=== PATIENT | female | born 1980 | race Caucasian/White ===

== ENCOUNTER → 2017-09-17 16:24 | Outpatient (CLI) | payer OTHER, SELFPAY ==
--- NOTE | 2017-09-17 | DI.MRI.S_ITS ---
PROCEDURE: MR FOOT LT WO/W CON INDICATIONS: PLANTAR FACIAL FIBROMETOSIS, LEFT HEEL PAIN TECHNIQUE: Noncontrast sagittal T1 spin echo and T2 fast spin echo with fat saturation, long-axis T1 spin echo and T2 fast spin echo with fat saturation; short-axis T1 spin echo, proton density fast spin echo, and T2 fast spin echo with fat saturation through the forefoot. Post-contrast short axis, long axis, and sagittal T1 spin echo with fat saturation through the forefoot. COMPARISON: None. FINDINGS: Image quality: Excellent. Bones and joints: There is mild ill-defined T2 signal elevation and enhancement within the inferomedial aspect of the posterior process of the calcaneus adjacent to the plantar fascia insertion site. The sesamoid bones appear in expected positions, without internal edema. No metatarsophalangeal joint degeneration. No intraosseous lesions. Small tibiotalar joint effusion. Small talonavicular joint effusion. Soft tissues: There is moderate T2 signal elevation surrounding the medial bundle of the plantar fascia at the calcaneal insertion site. Mild T2 signal elevation within the medial bundle of the plantar fascia at the calcaneal insertion site is present. The visualized plantar foot muscles demonstrate normal signal and bulk. Visualized flexor and extensor tendons appear intact, without tenosynovitis. The distal insertions of the peroneus brevis and longus tendons appear intact. The principal Lisfranc ligament appears intact. No soft tissue ganglion cysts or bursal fluid collections. IMPRESSION: 1. Medial bundle plantar fasciitis. 2. No evidence of plantar fibromatosis. 3. Small tibiotalar and talonavicular joint effusions. Dictated by: Sasha Francois M.D. on 09/20/2017 at 14:02 Approved by: Sasha Francois M.D. on 09/20/2017 at 14:08
== END ==
PROVIDERS: Family Provider Internal Medicine; PCP Internal Medicine; Visit Provider Podiatrist
DX: M72.2 Plantar fascial fibromatosis (principal); M79.672 Pain in left foot; M25.475 Effusion, left foot
CPT/HCPCS: 73720; A9579

== ENCOUNTER → 2017-11-17 11:05 | Outpatient (CLI) | payer OTHER, SELFPAY ==
[2017-11-17 11:54] LABS: Influenza A and B by PCR Rapid Negative (Negative)
== END ==
PROVIDERS: Family Provider Internal Medicine; PCP Internal Medicine; Visit Provider Internal Medicine
DX: R50.9 Fever, unspecified (principal); J02.9 Acute pharyngitis, unspecified
CPT/HCPCS: 87070; 87400

== ENCOUNTER 2018-02-07 04:16 | Observation (INO) | payer OTHER, SELFPAY ==
[2018-02-07] VITALS (18 sets, daily range): BP systolic 91–128; BP diastolic 55–77; PULSE 54–94; RESP 11–20; TEMP 36.2–37.2; O2SAT 95–100; BMI 22.4
--- NOTE | 2018-02-07 | PATH_ITS ---
[facility] Accession Number: [id number] . 01 Material submitted: . APPENDIX . 02 Diagnosis: Appendix: Acute appendicitis. MRV/02/09/2018 . 02 Electronically signed: . Nahum Christiansen MD, Pathologist NPI- [id number] . 01 Gross description: . Received in formalin, labeled appendix, is an intact appendix (length-5.2 cm, diameter-0.9 cm) with stanley-pink smooth and shiny serosa and attached mesocolon (up to 1.7 cm in depth). The resection margin is received opened. The lumen contains stanley-kapadia solid soft material. The wall is up to 0.1 cm thick. No nodules, masses or lesions are identified. The resection margin is inked black. Section code: (A1) resection margin en face and four additional serial sections; (A2) one-half of the bivalved tip. ([id number]) /[facility] . 02 Pathologist provided ICD-10: K35.80 . 02 CPT . 456000 Performed at: 01 [facility] [address] [facility], [place], [place] [id number] MD Santi Loera MD Phone: [phone] Performed at: [address] [facility] [id number] [place], [place] [id number] MD Laurel Menon MD Phone: [phone]
--- NOTE | 2018-02-07 04:57 | ED.ABDPAIN ---
HPI - Abdominal Pain General Chief Complaint: Abdominal Pain Stated Complaint: STOMACH PAIN, CANT SLEEP Time Seen by Provider: 02/07/18 04:34 Source: patient Mode of arrival: ambulatory Limitations: no limitations History of Present Illness HPI narrative: Patient complains of a burning mid abdominal pain that goes like a band across her abdomen that awoke her from sleep this morning. She states this started about 5 hr ago. Patient states she felt fine when she went to bed but she awoke because the pain. Patient states this has happened 2 other times, once about 3 years ago and the other time about 8-9 years ago. She states the quality of the pain was the same at this times. After the 1st incident, she had an EGD, which is negative. Patient then was for the 2nd episode and so an ultrasound of her gallbladder was done which was also negative. Patient's the only 2 other episodes she has ever had of this, and this is 3rd. She states in the past, Protonix and symptomatic management has worked in the emergency department. She never has followed up with gastroenterology, though it appears she has not been referred. MD complaint: abdominal pain Location: periumbilical and epigastric Severity scale (1-10): 7 Related Data Home Medications Medication Instructions Recorded Confirmed Calcium 500 See Label Instructions .ROUTE 02/07/18 02/07/18 .COMPLEX See Label Instructions .ROUTE 02/07/18 02/07/18 .COMPLEX Probiotic See Label Instructions .ROUTE 02/07/18 02/07/18 .COMPLEX omeprazole magnesium [Prilosec OTC] 20 mg PO DAILY 02/07/18 02/07/18 Previous Rx's Medication Instructions Recorded alprazolam 0.5 mg tablet See Label Instructions PO .COMPLEX 01/04/18 PRN #10 tab norgestimate 0.18 mg/0.215 mg/0.25 1 tab PO DAILY #336 tab 01/04/18 mg-ethinyl estradiol 25 mcg tablet acetaminophen 500 mg PO Q6H PRN #60 cap 02/09/18 docusate sodium [Colace] 100 mg PO BID #14 cap 02/09/18 gabapentin 100 mg PO TID #30 cap 02/09/18 oxycodone 5 mg PO Q3H PRN #30 tab 02/09/18 sennosides [Senokot] 8.6 mg PO BEDTIME #10 tab 02/09/18 Allergies Allergy/AdvReac Type Severity Reaction Status Date / Time morphine [MORPHINE] Allergy Intermediate hives Verified 02/07/18 04:36 cephalexin [From KEFLEX] Allergy Mild hives Verified 02/07/18 04:36 Review of Systems Review of Systems All systems reviewed & are unremarkable except as noted in HPI and below Constitutional Denies chills, Denies fever(s), Denies lethargy and Denies weakness Eyes Denies change in vision, Denies eye discharge, Denies irritation and Denies loss of vision ENT Ears, Nose, Mouth, and Throat: Denies change in voice, Denies neck pain and Denies sore throat Cardiovascular Denies chest pain, Denies irregular heart rhythm, Denies lightheadedness, Denies palpitations, Denies dyspnea, Denies dyspnea on exertion and Denies orthopnea Respiratory Denies cough, Denies dyspnea, Denies dyspnea on exertion and Denies wheezing Gastrointestinal Gastrointestinal: Reports abdominal pain, Denies change in bowel habits, Denies diarrhea, Reports nausea and Denies vomiting Genitourinary Denies hematuria, Denies flank pain, Denies urinary incontinence and Denies urinary urgency Musculoskeletal Denies neck pain Integumentary/Breasts Denies pruritus, Denies erythema, Denies rash and Denies wounds Neurologic Denies confusion, Denies loss of vision and Denies weakness Psychiatric Denies anxiety, Denies confusion, Denies depression, Denies homicidal ideation and Denies suicidal ideation Endocrine Denies palpitations Hematologic/Lymphatic Denies easy bruising Allergic/Immunologic Denies wheezing PFSH Medical History Healthy adult (Acute) Surgical History No pertinent past surgical history (Acute) Family History Father Age: 74 Afib High cholesterol Grandmother Hypertension Mother Age: 70 Osteoporosis Grandfather Heart disease Grandmother Heart disease Hypertension High cholesterol Social History household members: spouse and children Smoking Status: Never smoker alcohol intake: current Exam Initial Vital Signs Initial Vital Signs: Vital Signs Temperature 98.6 F 02/07/18 04:32 Pulse Rate 77 02/07/18 04:32 Respiratory Rate 18 02/07/18 04:32 Blood Pressure 128/64 02/07/18 04:32 Pulse Oximetry 100 02/07/18 04:32 Const General: cooperative and well developed Nutritional Appearance: well nourished Orientation: alert, awake, oriented x3 and not confused [facility] Head: normocephalic and atraumatic Ears: external ears normal Nose: external nose normal and No nasal discharge Face and sinus: face symmetric and No dry mucous membranes Mouth: oral mucosae normal and moist mucous membranes Teeth and gingiva: dentition normal Eyes General: appearance normal, both eyes and all related structures Eyelids: eyelids normal Conjunctivae: conjunctivae normal Sclera: sclerae normal Pupils: PERRL EOM: EOM intact bilaterally Neck Neck: normal visual inspection, trachea midline, No lymphadenopathy, No midline deformity and No JVD Lymphatic: No lymphedema Chest Chest: normal inspection of the chest Resp Effort & Inspection: normal respiratory effort, able to speak in complete sentences, no respiratory distress and no use of accessory muscles Auscultation: clear to auscultation bilaterally, no rales, no rhonchi and no wheezes Cardio Rate: regular rate Rhythm: regular rhythm Heart Sounds: no click, no gallops, no murmurs and no rubs Pulses: normal peripheral pulses GI Inspection: non-distended Palpation: soft, no hepatosplenomegaly, No guarding, No pulsatile mass and tender (moderate, generalized.) Back/Spine/Pelvis Back: No CVA tenderness Cervical Spine: cervical ROM normal and No pain with cervical ROM Thoracic/Lumbar Spine: thoracic and lumbar spine normal to inspection Skin General: no rashes or lesions noted, No jaundice and No petechiae Neuro General: alert, oriented x3, gait normal and no focal motor deficits Speech: speech normal Extrem General: full ROM, no clubbing, cyanosis or edema, no pedal edema and no calf tenderness Psych Appearance: well kempt Mental Status: mental status grossly normal Attitude: cooperative Thought Content: normal and suicidality Judgment: judgment good Course Course Narrative: Patient declined symptomatic treatment in the emergency department, but was worked up for her symptoms. Lab studies were done, as well as CT scan of the abdomen and pelvis. Patient was found to have leukocytosis of 15 0.1, and CT scan results were consistent with an early appendicitis, per radiologist. I spoke with Dr. Mckineny of surgery, who did agree to admit the patient to his service. Results were discussed with the patient, who expressed understanding. Orders Ordered: Discontinued Medications Acetaminophen (Tylenol) 650 mg PO Q6HR PRN PRN Reason: As Needed for Fever/Mild Pain Last Admin: 02/08/18 14:34 Dose: 325 mg Admin: 02/08/18 08:34 Dose: 325 mg Al Hydrox/Mg Hydrox/Simethicone 20 ml/ Lidocaine HCl 15 ml 0 ml PO NOW ONE Stop: 02/07/18 05:46 Last Admin: 02/07/18 06:02 Dose: 15 ml Fentanyl (Sublimaze) 25 mcg IV Q5MIN PRN PRN Reason: Pain, Mild (1-3) Last Admin: 02/07/18 13:46 Dose: 25 mcg Admin: 02/07/18 13:39 Dose: 25 mcg Admin: 02/07/18 13:33 Dose: 25 mcg Admin: 02/07/18 13:27 Dose: 25 mcg Fentanyl (Sublimaze) 50 mcg IV Q5MIN PRN PRN Reason: Pain, Moderate (4-6) Fentanyl (Sublimaze) 100 mcg IV Q5MIN PRN PRN Reason: Pain, Severe (7-10) Fentanyl (Sublimaze) 50 mcg IV Q5MIN PRN PRN Reason: Pain, Moderate (4-6) Gabapentin (Neurontin) 100 mg PO TID CHAZ Last Admin: 02/09/18 10:57 Dose: Not Given Admin: 02/08/18 21:14 Dose: 100 mg Hydromorphone HCl (Dilaudid) 0.5 mg IV NOW ONE Stop: 02/07/18 05:46 Last Admin: 02/07/18 05:58 Dose: 0.5 mg Hydromorphone HCl (Dilaudid) 1 mg IV NOW ONE Stop: 02/07/18 14:46 Last Admin: 02/07/18 14:42 Dose: 1 mg Sodium Chloride (Normal Saline 0.9%) 1,000 mls @ 1,000 mls/hr IV BOLUS ONE Stop: 02/07/18 06:44 Last Infusion: 02/07/18 07:33 Dose: 0 mls/hr Admin: 02/07/18 05:58 Dose: 1,000 mls/hr Piperacillin/Tazobactam/Dextrose (Zosyn) 3.375 gm in 50 mls @ 100 mls/hr IV NOW ONE Stop: 02/07/18 08:46 Last Infusion: 02/07/18 12:37 Dose: 0 mls/hr Admin: 02/07/18 12:32 Dose: 100 mls/hr Infusion: 02/07/18 09:38 Dose: 100 mls/hr Infusion: 02/07/18 09:15 Dose: 100 mls/hr Admin: 02/07/18 08:49 Dose: 100 mls/hr Sodium Chloride (Normal Saline 0.9%) 1,000 mls @ 100 mls/hr IV CONT CHAZ Last Admin: 02/07/18 10:29 Dose: 100 mls/hr Sodium Chloride (Normal Saline 0.9%) 1,000 mls @ 100 mls/hr IV CONT CHAZ Last Admin: 02/07/18 11:34 Dose: Lactated Ringer's (Lactated Ringers) 1,000 mls @ 42 mls/hr IV NOW ONE Stop: 02/08/18 12:06 Last Infusion: 02/08/18 09:48 Dose: 0 mls/hr Admin: 02/07/18 12:19 Dose: 42 mls/hr Dextrose/Sodium Chloride (Dextrose 5%-0.45% Ns) 1,000 mls @ 100 mls/hr IV CONT CHAZ Last Infusion: 02/08/18 21:09 Dose: 0 mls/hr Admin: 02/08/18 18:54 Dose: 100 mls/hr Infusion: 02/08/18 18:35 Dose: 100 mls/hr Admin: 02/08/18 08:35 Dose: 100 mls/hr Infusion: 02/08/18 00:41 Dose: 100 mls/hr Admin: 02/07/18 14:41 Dose: 100 mls/hr Ibuprofen (Advil) 600 mg PO Q6HR PRN PRN Reason: As Needed for Fever/Mild Pain Last Admin: 02/09/18 05:45 Dose: 600 mg Admin: 02/08/18 22:54 Dose: 600 mg Admin: 02/08/18 16:32 Dose: 600 mg Admin: 02/08/18 08:34 Dose: 600 mg Ketorolac Tromethamine (Toradol) 30 mg IV Q6HR CHAZ Stop: 02/12/18 11:01 Last Admin: 02/07/18 11:34 Dose: 30 mg Lorazepam (Ativan) 0.25 mg IV NOW PRN PRN Reason: Anxiety Meperidine HCl (Demerol) 25 mg IV Q5MIN PRN PRN Reason: Pain or shivering Ondansetron HCl (Zofran) 4 mg IV NOW ONE Stop: 02/07/18 05:46 Last Admin: 02/07/18 06:00 Dose: 4 mg Ondansetron HCl (Zofran) 4 mg IV NOW PRN PRN Reason: Nausea And Vomiting Oxycodone/Acetaminophen (Percocet 5/325) 1 tab PO Q4HR PRN PRN Reason: Pain, Moderate (4-6) Last Admin: 02/09/18 10:55 Dose: 1 tab Admin: 02/09/18 05:44 Dose: 1 tab Admin: 02/08/18 22:54 Dose: 1 tab Admin: 02/08/18 18:57 Dose: 1 tab Admin: 02/08/18 14:34 Dose: 1 tab Admin: 02/08/18 10:25 Dose: 1 tab Admin: 02/08/18 06:19 Dose: 1 tab Admin: 02/08/18 01:42 Dose: 1 tab Admin: 02/07/18 21:17 Dose: 1 tab Admin: 02/07/18 17:01 Dose: 1 tab Pantoprazole Sodium (Protonix) 40 mg IV NOW ONE Stop: 02/07/18 05:46 Last Admin: 02/07/18 06:02 Dose: 40 mg Ranitidine HCl (Zantac) 150 mg PO BID CHAZ Last Admin: 02/09/18 10:55 Dose: 150 mg Admin: 02/08/18 21:15 Dose: 150 mg Admin: 02/08/18 09:52 Dose: 150 mg Admin: 02/08/18 08:33 Dose: Admin: 02/07/18 20:22 Dose: 150 mg Vital Signs - 8 hr 02/07/18 04:32 Temperature 98.6 F Pulse Rate 77 Respiratory Rate 18 Blood Pressure 128/64 Pulse Oximetry 100 MDM - Abdominal Pain Medical Records Attestation: I reviewed the patient's medical records. Lab Data Attestation: I reviewed the patient's lab results. Result diagrams: 02/07/18 04:55 02/07/18 04:55 Lab Results 02/07/18 02/07/18 02/07/18 Range/Units 04:55 04:55 04:55 WBC 15.1 H (4.5-11.0) X10^3/uL RBC 4.88 (4.0-5.2) X10^6/uL Hgb 14.8 (12.0-16.0) g/dL Hct 44.3 (36-46) % MCV 90.8 (80-100) fL MCH 30.4 (26-34) PG MCHC 33.5 (30-36) % RDW 12.7 (11.6-14.8) % Plt Count 170 (150-400) X10^3/uL Neut % (Auto) 82.2 H (50-75) % Lymph % (Auto) 11.4 L (25-40) % [place] % (Auto) 5.1 (3-14) % Eos % (Auto) 1.1 L (2-4) % Baso % (Auto) 0.2 (0-2) % Neut # (Auto) 78909 H (6584-4708) /uL PT 10.6 (10.1-12.7) SECONDS INR 0.9 (0.9-1.3) APTT 26 L (26.4-36.2) SECONDS Sodium 139 (137-145) mmol/L Potassium 4.3 (3.4-5.1) mmol/L Chloride 102 (98-107) mmol/L Carbon Dioxide 27 (22-32) mmol/L BUN 13 (7-17) mg/dL Creatinine 0.70 (0.52-1.04) mg/dL Estimated GFR > 60.0 (>60) mL/min BUN/Creatinine Ratio 18.6 (6-22) Glucose 107 H (70-100) mg/dL Calcium 9.3 (8.4-10.2) mg/dL Total Bilirubin 0.4 (0.2-1.3) mg/dL AST 31 (14-36) IU/L ALT 41 (9-52) IU/L Alkaline Phosphatase 48 (38-126) U/L Total Protein 7.2 (6.3-8.2) g/dL Albumin 4.4 (3.5-5.0) g/dL Globulin 2.8 (1.7-4.1) g/dL Albumin/Globulin Ratio 1.6 (1.0-2.8) Lipase 83 (23-300) U/L 02/07/18 Range/Units 04:55 WBC (4.5-11.0) X10^3/uL RBC (4.0-5.2) X10^6/uL Hgb (12.0-16.0) g/dL Hct (36-46) % MCV (80-100) fL MCH (26-34) PG MCHC (30-36) % RDW (11.6-14.8) % Plt Count (150-400) X10^3/uL Neut % (Auto) (50-75) % Lymph % (Auto) (25-40) % [place] % (Auto) (3-14) % Eos % (Auto) (2-4) % Baso % (Auto) (0-2) % Neut # (Auto) (7257-5357) /uL PT (10.1-12.7) SECONDS INR (0.9-1.3) APTT (26.4-36.2) SECONDS Sodium (137-145) mmol/L Potassium (3.4-5.1) mmol/L Chloride (98-107) mmol/L Carbon Dioxide (22-32) mmol/L BUN (7-17) mg/dL Creatinine (0.52-1.04) mg/dL Estimated GFR (>60) mL/min BUN/Creatinine Ratio (6-22) Glucose (70-100) mg/dL Calcium (8.4-10.2) mg/dL Total Bilirubin (0.2-1.3) mg/dL AST (14-36) IU/L ALT (9-52) IU/L Alkaline Phosphatase (38-126) U/L Total Protein (6.3-8.2) g/dL Albumin (3.5-5.0) g/dL Globulin (1.7-4.1) g/dL Albumin/Globulin Ratio (1.0-2.8) Lipase 94 (23-300) U/L Point of care testing: Point of Care Testing Test Results Negative Urine Dip Bedside Urine Glucose Negative Bedside Urine Bilirubin - Negative Bedside Urine Ketone - Negative Urine Specific [place] 1.020 Bedside Urine Occult Blood - Negative Bedside Urine pH 6.0 Bedside Urine Protein - Negative Bedside Urine Urobilinogen - Negative Bedside Urine Nitrite - Negative Bedside Urine Leukocytes - Negative Esterase Imaging Data CT scan - abdomen: Radiologist's impression: PROCEDURE: CT ABDOMEN PELVIS W CON INDICATIONS: abdominal pain TECHNIQUE: After the administration of intravenous contrast, 5 mm thick sections acquired from the diaphragm to the symphysis. 5 mm coronal and sagittal reformats were acquired. For radiation dose reduction, the following was used: automated exposure control, adjustment of mA and/or kV according to patient size. COMPARISON: None. FINDINGS: Image quality: Excellent. ABDOMEN: Lung bases: Lung bases are clear. Heart size is normal. Solid organs: Liver is normal in size and enhancement. Gallbladder is normal. Biliary system is non dilated. Pancreas enhances normally. Spleen is normal in size and enhancement. No adrenal nodules. Kidneys demonstrate normal size and enhancement, without hydronephrosis. Peritoneum and bowel: Appendix is enlarged and demonstrates mildly increased or enhancement. There is mild periappendiceal stranding. No intraluminal air to suggest appendiceal perforation. No abscess. There is a gastric diverticulum arising from the posterior gastric cardia. Nodes and vessels: No retroperitoneal or mesenteric adenopathy by size criteria. Aorta and inferior vena cava are normal in size. Miscellaneous: There is a small fat containing umbilical hernia. PELVIS: Genitourinary: Bladder wall thickness is normal. Uterus and ovaries are unremarkable. Prominent pelvic vessels are noted. Miscellaneous: No inguinal hernias or adenopathy. Bones: No suspicious bony lesions. No vertebral body compression fractures. IMPRESSION: 1. The CT findings are consistent with early acute appendicitis. No evidence for appendiceal perforation or abscess. 2. 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 3. A small fat containing umbilical hernia. Dictated by: Melinda Bydr M.D. on 02/07/2018 at 7:40 Approved by: Melinda Byrd M.D. on 02/07/2018 at 17:09 Discharge Plan Departure Patient Disposition: Admitted as Observation Clinical Impression: Acute appendicitis Discharge Date/Time: 02/07/18 09:17 Interventions: ED Discharge Assessment Last Done: 02/07/18 09:17 Admit Date/Time: 02/07/18 08:23 Admit Provider: Fredo Mckinney
[2018-02-07 05:03] LABS: Add Manual Diff / Slide Review NO; Basophils Percent Auto 0.2 % (0-2); Eosinophils Percent Auto 1.1 % (2-4); Hematocrit 44.3 % (36-46); Hemoglobin 14.8 g/dL (12.0-16.0); Lymphocytes Percent Auto 11.4 % (25-40); Mean Corpuscular HGB Conc 33.5 % (30-36); Mean Corpuscular Hemoglobin 30.4 PG (26-34); Mean Corpuscular Volume 90.8 fL (80-100); Monocytes Percent Auto 5.1 % (3-14); Neutrophils Absolute Auto 12400 /uL (3000-5900); Neutrophils Percent Auto 82.2 % (50-75); Platelet Count 170 X10^3/uL (150-400); Red Blood Cell Count 4.88 X10^6/uL (4.0-5.2); Red Cell Distribution Width 12.7 % (11.6-14.8); White Blood Cell Count 15.1 X10^3/uL (4.5-11.0)
[2018-02-07 05:15] LABS: INR 0.9 (0.9-1.3); Prothrombin Time 10.6 SECONDS (10.1-12.7)
[2018-02-07 05:18] LABS: PTT Partial Thromboplastin Tim 26 SECONDS (26.4-36.2)
[2018-02-07 05:20] LABS: Alanine Aminotransferase 41 IU/L (9-52); Albumin 4.4 g/dL (3.5-5.0); Albumin Globulin Ratio 1.6 (1.0-2.8); Alkaline Phosphatase 48 U/L (38-126); Aspartate Aminotransferase 31 IU/L (14-36); BUN Creatinine Ratio 18.6 (6-22); Bilirubin Total 0.4 mg/dL (0.2-1.3); Blood Urea Nitrogen 13 mg/dL (7-17); Calcium 9.3 mg/dL (8.4-10.2); Carbon Dioxide 27 mmol/L (22-32); Chloride 102 mmol/L (98-107); Estimated Glomerular Filt Rate > 60.0 mL/min (>60); Globulin 2.8 g/dL (1.7-4.1); Glucose 107 mg/dL (70-100); HEMOLYSIS < 15 (0-50); Lipase 83 U/L (23-300); Potassium 4.3 mmol/L (3.4-5.1); Sodium 139 mmol/L (137-145); Total Protein 7.2 g/dL (6.3-8.2)
[2018-02-07 05:56] LABS: Lipase 94 U/L (23-300)
[2018-02-07] MEDS: HYDROMORPHONE 1 MG INJ 0.5 MG IV (05:58)
[2018-02-07] MEDS: SODIUM CHLORIDE 0.9% 1,000 ML 1000 ML IV (05:58)
[2018-02-07] MEDS: ONDANSETRON 4 MG/2 ML INJ IV (06:00)
[2018-02-07] MEDS: PANTOPRAZOLE 40 MG VIAL IV (06:02)
[2018-02-07] MEDS: MAG HYDROX/ALUMINUM/SIMETH SUS 20 ML, LIDOCAINE VISCOUS 2% 15 ML PO (06:02)
--- NOTE | 2018-02-07 06:56 | DI.CT.S_ITS ---
PROCEDURE: CT ABDOMEN PELVIS W CON INDICATIONS: abdominal pain TECHNIQUE: After the administration of intravenous contrast, 5 mm thick sections acquired from the diaphragm to the symphysis. 5 mm coronal and sagittal reformats were acquired. For radiation dose reduction, the following was used: automated exposure control, adjustment of mA and/or kV according to patient size. COMPARISON: None. FINDINGS: Image quality: Excellent. ABDOMEN: Lung bases: Lung bases are clear. Heart size is normal. Solid organs: Liver is normal in size and enhancement. Gallbladder is normal. Biliary system is non dilated. Pancreas enhances normally. Spleen is normal in size and enhancement. No adrenal nodules. Kidneys demonstrate normal size and enhancement, without hydronephrosis. Peritoneum and bowel: Appendix is enlarged and demonstrates mildly increased or enhancement. There is mild periappendiceal stranding. No intraluminal air to suggest appendiceal perforation. No abscess. There is a gastric diverticulum arising from the posterior gastric cardia. Nodes and vessels: No retroperitoneal or mesenteric adenopathy by size criteria. Aorta and inferior vena cava are normal in size. Miscellaneous: There is a small fat containing umbilical hernia. PELVIS: Genitourinary: Bladder wall thickness is normal. Uterus and ovaries are unremarkable. Prominent pelvic vessels are noted. Miscellaneous: No inguinal hernias or adenopathy. Bones: No suspicious bony lesions. No vertebral body compression fractures. IMPRESSION: 1. The CT findings are consistent with early acute appendicitis. No evidence for appendiceal perforation or abscess. 2. 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 3. A small fat containing umbilical hernia. Dictated by: Melinda Byrd M.D. on 02/07/2018 at 7:40 Approved by: Melinda Byrd M.D. on 02/07/2018 at 17:09
[2018-02-07] MEDS: PIPERACILLIN-TAZO 3.375 GM/50 ML FROZ.PIGGY IV ×2 (08:49→12:32)
[2018-02-07] MEDS: SODIUM CHLORIDE 0.9% 1,000 ML 100 ML IV (10:29)
[2018-02-07] MEDS: KETOROLAC 30 MG/ML VIAL IV (11:34)
--- NOTE | 2018-02-07 12:16 | SUR.HOLD ---
PT HAS 2 IV SITES; RIGHT AC AND RIGHT WRIST, RIGHT AC IV D/C'D . RIGHT WRIST IV IS PATENT AND IV INFUSING WELL.
[2018-02-07] MEDS: LACTATED RINGERS 1,000 ML 42 ML IV (12:19)
--- NOTE | 2018-02-07 12:45 | SUR.OPER ---
Supine on padded OR bed, head on pillow, arms secured on padded arm boards at <90 degrees abduction, legs uncrossed, safety belt at thigh, tape over blanket over lower legs.
[2018-02-07] MEDS: fentaNYL 100 MCG/2 ML INJ 25 MCG IV ×4 (13:27→13:46)
--- NOTE | 2018-02-07 13:41 | SUR.PHASEI ---
states pain decreasing, starting to feel better.
[2018-02-07] MEDS: DEXTROSE 5%-0.45% NS 1,000 ML 100 ML IV (14:41)
[2018-02-07] MEDS: HYDROMORPHONE 1 MG INJ IV (14:42)
--- NOTE | 2018-02-07 15:05 | OP_ITS ---
DATE OF SERVICE: 02/07/2018 PREOP DIAGNOSIS: Acute appendicitis. POSTOP DIAGNOSIS: Acute appendicitis, uncomplicated. PROCEDURE: Appendectomy. SURGEON: Fredo Mckinney MD DESCRIPTION OF PROCEDURE: Patient given a general endotracheal anesthetic, prepped and draped in sterile fashion with exposure to the lower abdomen, properly identified during surgical pause. A Ed Michael incision was made over McBurney point. The oblique muscles split in gridiron fashion exposing the peritoneum, which was elevated and entered so as to avoid injury to the underlying structures. The cecum was rotated into the wound. The appendix was elevated. It was acutely inflamed but not perforated. It was covered with fibrin. It was cultured. The mesoappendix divided between clamps. The vessels ligated with 2-0 Vicryl. There was excellent hemostasis. The base of the appendix was closed with a TA-30 stapler, and the appendix thus removed. The staple line was oversewn with running 3-0 Vicryl. The cecum returned to its anatomic position. The pelvis irrigated with copious saline with bacitracin, aspirated dry. There was no bleeding. No purulence. The peritoneum closed with running 2-0 Vicryl. The oblique fascia closed with one #1 Maxon. Subcu irrigated with bacitracin. Skin danielle and sterile dressing applied. The procedure was well tolerated. Angela Bearden - Jordyn/ doc#: [id number]/job#: [id number] dd: 02/07/2018 13:16:00 dt: 02/07/2018 14:56:00 DICTATING MD/COPIES TO: Fredo Mckinney MD COPIES MNE: BINTA
--- NOTE | 2018-02-07 16:19 | PC.NURSE ---
Admit & post-op: Late entry Patient arrived to floor 0910 this morning. Went to surgery at 1200. Back to floor at 1400. Dressing to RLQ abd C/D/I. Tolerated water/ice and ice cream without N/V. Pain down to 3 from 7 after getting 1 mg IV Dilaudid. VSS. 99-100% on RA. Able to make needs known and agrees to call for SBA to BR. Light in reach, bed alarm on (for safety of fresh post-op patient).
[2018-02-07] MEDS: OXYCODONE/ACETAMINOPHEN 5/325 TABLET 1 TAB PO ×2 (17:01→21:17)
[2018-02-08] VITALS (7 sets, daily range): BP systolic 91–105; BP diastolic 49–65; PULSE 48–60; RESP 15–18; TEMP 36.6–37.1; O2SAT 96–98
[2018-02-08] MEDS: OXYCODONE/ACETAMINOPHEN 5/325 TABLET 1 TAB PO ×6 (01:42→22:54)
--- NOTE | 2018-02-08 07:48 | HP_ITS ---
DATE OF SERVICE: 02/07/2018 PREOPERATIVE HISTORY AND PHYSICAL HISTORY OF PRESENT ILLNESS: A 38-year-old white female patient comes in to the emergency room with a [id number]-half history of generalized abdominal pain, nausea, indigestion, no vomiting. Comes to the emergency room with a white count of 15,000, CT scan showing early acute appendicitis, uncomplicated. No abscess formation is noted. PREVIOUS SURGERIES: She's had shoulder repair in the past. No abdominal surgery. PAST MEDICAL HISTORY: Denies diabetes, heart disease, or hypertension. ALLERGIES: MORPHINE AND KEFLEX, BOTH OF WHICH GIVE HIVES. REVIEW OF SYSTEMS: Negative for chest pain, unusual shortness of breath. GI: HPI. : Negative. NEUROLOGIC: Negative for strokes or seizures. PHYSICAL EXAMINATION VITAL SIGNS: Patient is afebrile, 98.5. HEENT: Ears, nose, and throat are normal. NECK: No adenopathy. CHEST: Lungs are clear. HEART: Regular rhythm. No murmur. ABDOMEN: Soft in the upper abdomen but quite tender in the lower abdomen and mid abdomen there is bilateral tenderness. No masses palpated. She has guarding and early rebound tenderness in the right lower quadrant. The remaining physical is unremarkable. DIAGNOSIS: Acute appendicitis. PLAN: Appendectomy. Patient is admitted now with IV fluids and antibiotic therapy. Angela Bearden - /omid/nancy doc#: [id number]/job#: [id number] dd: 02/07/2018 09:54:00 dt: 02/07/2018 10:50:00 DICTATING MD/COPIES TO: Fredo Mckinney MD COPIES MNE: BINTA
[2018-02-08] MEDS: ACETAMINOPHEN 325 MG TABLET 650 MG PO ×2 (08:34→14:34)
[2018-02-08] MEDS: IBUPROFEN 600 MG TABLET PO ×3 (08:34→22:54)
[2018-02-08] MEDS: DEXTROSE 5%-0.45% NS 1,000 ML 100 ML IV ×2 (08:35→18:54)
--- NOTE | 2018-02-08 12:48 | CM.DANOTE ---
DCP/Assessment: Reviewed chart. Patient is a 38yr old female admitted under OBS status with abdominal pain. PCP listed is Martha Alvarez. Primary payor is 1)Kosta Fournier. Met with patient and spouse/Christopher at bedside explained CM/SW role. Patient asleep at time of HEALTH CARE ATTORNEY visit. Spouse reports that patient completely I in ADL's and d/c plan is for patient to go home when medically stable. Patient underwent appendectomy on 02-07-[address] Mckinney. P: Home when medically stable. CM team to follow closely if needs were to arise. GISELE Ortiz Discharge Planning/Care Management CM Discharge Assessment Start: 02/08/18 12:46 Freq: Status: Active Protocol: Document 02/08/18 12:46 KJS (Rec: 02/08/18 12:48 KJS [id number]) Discharge Planning Assessment Assigned Doctor Podiatric Medicine GISELE Ortiz Contact Information Sascha Bearden (spouse) [phone] Advance Directives? Yes History Provided By Significant Other Medical Record Has Patient been admitted in last 30 No days? Prior Living Arrangements House Household Members spouse children Type of transporation used prior to Drives own vehicle admit Independent with ADL's Yes Is patient alert and oriented? Yes Barriers to Discharge No Discharge Plan Home Transportation Arrangement Family to provide transport home. Referrals Initiated None needed Whiteboard Updated in Patient Room with Yes name and ext. # of Doctor Podiatric Medicine Review Status In Process Please Provide Date Initial DC 02/08/18 Assessment Was Performed Next Review Type Continued Stay Review
--- NOTE | 2018-02-08 15:25 | PC.NURSE ---
Summary: A&O X3. Ambulated halls multiple times with SBA. Tolerating PO's without N/V. Reports intermittent waves of burning, cramping pain across my belly despite pain meds given. We have been alternating ice and warm blankets on her belly which has helped somewhat. She reports the pain is tolerable and knows to tell nursing staff if it becomes too uncomfortable. Her belly is soft, tender to palpation. She reports feeling bloated. BT+ X4. Denies flatus. Voiding WNL. Calls appropriately. Faxed a note to Dr Moon (in surgery until approx [phone]) letting him know how patient was describing her pain. Also, asked in the note if he wants any labs ordered, any Abx ordered, any DVT Prophylaxis ordered. Lastly, let him know that patient is wondering if she is allowed to shower. Relayed all of this to the lachelle shift RN also.
[2018-02-08] MEDS: GABAPENTIN 100 MG CAPSULE PO (21:14)
--- NOTE | 2018-02-08 21:46 | PM.PN.1 ---
Subjective Date Patient Seen: 02/08/18 Time Patient Seen: 21:46 Interval history: Patient complaining of some burning pain across the lower abdomen adjacent to the incision but controlled with current narcotic regimen. No dysuria. No subjective fever or chills. Feels subjectively mildly distended but did pass a small amount of flatus earlier today. Tolerating a diet. Exam Vital Signs (past 8 hours): - 02/08/18 15:43 02/08/18 20:44 Temperature 98.3 F 98.5 F Pulse Rate 59 L 56 L Respiratory Rate 15 15 Blood Pressure 103/65 104/64 Pulse Oximetry 97 97 Oxygen Delivery Method Room Air Oxygen Flow Rate 0 Narrative Exam Narrative: Well-nourished well-developed female in no acute distress. Alert oriented x3. Afebrile since surgery No tachycardia Normal blood pressure Adequate urine output No crackles or wheezes Abdomen is mildly distended but soft. She is appropriately tender to palpation without guarding or rebound involuntarily. Dressing is clean, dry, and intact. Objective Labs Result Diagrams: 02/07/18 04:55 02/07/18 04:55 Labs: No new laboratory or radiographic studies for review Assessment & Plan Plan: Assessment/Plan Narrative: 38-year-old female postoperative day 1 from open appendectomy who is otherwise doing well. Advance to diet as tolerated. Saline lock IV. She requires no further antibiotics at this time. Ambulate and shower as tolerated. Add gabapentin for analgesia. I discussed this with her in detail. Anticipate home tomorrow she continues to do well. All questions answered to her satisfaction, and she voiced understanding. Quality VTE Deep Vein Thrombosis/Pulmonary Embolism Present on Admission: No
[2018-02-09] MEDS: OXYCODONE/ACETAMINOPHEN 5/325 TABLET 1 TAB PO ×2 (05:44→10:55)
[2018-02-09] MEDS: IBUPROFEN 600 MG TABLET PO (05:45)
[2018-02-09 06:01] VITALS: BP 116/73; PULSE 54; RESP 16; TEMP 36.9; O2SAT 96
[2018-02-09 08:00] VITALS: BP 107/59; PULSE 73; RESP 17; TEMP 36.7; O2SAT 97
--- NOTE | 2018-02-09 10:59 | P.DS_ITS ---
History of Present Illness Date Patient Seen: 02/09/18 Time Patient Seen: 10:55 Chief complaint: STOMACH PAIN, CANT SLEEP Narrative: 38-year-old female who presented the emergency department 2 days ago with progressive right-sided abdominal pain. Examination and evaluation were consistent with acute appendicitis. She was taken to the operating room for open appendectomy which she tolerated well. She was admitted for ongoing convalescence after surgery. At the time of her discharge she denies any subjective fever or chills. No nausea or vomiting. She has had return of bowel bladder function. Her pain is well controlled with gabapentin and oxycodone. Wound is healing nicely. She is ambulating without difficulty. Discharge Providers Date of admission: 02/07/18 08:23 Primary care physician: CLAUDIA Minor Discharge provider: Reilly Moon MD Discharge Date: 02/09/18 Summary Discharge Diagnosis: Acute appendicitis open appendectomy this admission anxiety Hospital Course: following surgery she was admitted to the regular surgical floor where she remained afebrile and hemodynamically stable. She was tolerating a regular diet by the time of discharge. Incision is healing nicely. She has had return of spontaneous bowel bladder function. Pain is controlled with oral analgesia. Because of her overall stable condition she is discharged home on postoperative day 2. she will follow up next week for removal of her skin danielle. However, she has been instructed to call or return sooner should she have any fever, chills, nausea, vomiting, inability to tolerate a diet, wound drainage, erythema, lack of bowel function, or progressive abdominal pain. All questions were answered to her satisfaction, and she voiced understanding. Status at Discharge Cognitive/behavioral status at discharge: Alert, oriented x3 Functional status at discharge: independent ambulation Overall status at discharge: patient is progressing back to baseline Time Spent with Patient Less than 30 minutes Exam Vital Signs (past 8 hours): - 02/09/18 06:01 Temperature 98.4 F Pulse Rate 54 L Respiratory Rate 16 Blood Pressure 116/73 Pulse Oximetry 96 Oxygen Delivery Method Room Air Oxygen Flow Rate 0 Narrative Exam Narrative: well-nourished well-developed female in no acute distress. Alert oriented x3 chest clear auscultation abdomen soft and nondistended. Appropriately tender to palpation without involuntary guarding or rebound incision is clean, dry, and intact without erythema, ecchymosis, hematoma, seroma, or drainage Extremities show no clubbing, cyanosis, or edema Objective Labs Result Diagrams: 02/07/18 04:55 02/07/18 04:55 Labs: no new laboratory or radiographic studies review at discharge Discharge Plan Discharge Plan Patient Disposition: Home Discharge Med Rec/Prescriptions Prescriptions: New sennosides [Senokot] 8.6 mg tablet 8.6 mg PO BEDTIME Qty: 10 RF: 1 docusate sodium [Colace] 100 mg capsule 100 mg PO BID Qty: 14 RF: 1 gabapentin 100 mg capsule 100 mg PO TID Qty: 30 RF: 0 acetaminophen 500 mg capsule 500 mg PO Q6H PRN (Reason: fever or pain) Qty: 60 RF: 0 oxycodone 5 mg tablet 5 mg PO Q3H PRN (Reason: pain) Qty: 30 RF: 0 Continue norgestimate-ethinyl estradiol [Ortho Tri-Cyclen LO (28)] 0.18/0.215/0.25 mg- 25 mcg tablet 1 tab PO DAILY Qty: 336 RF: 0 alprazolam [Xanax] 0.5 mg tablet See Label Instructions PO .COMPLEX PRN (Reason: anxiety) Qty: 10 RF: 1 omeprazole magnesium [Prilosec OTC] 20 mg Tablet,Delayed Release (Dr/Ec) 20 mg PO DAILY RF: 0 Calcium 500 See Label Instructions .ROUTE .COMPLEX RF: 0 See Label Instructions .ROUTE .COMPLEX RF: 0 Probiotic See Label Instructions .ROUTE .COMPLEX RF: 0 Follow up/Referrals: Reilly Moon MD [Physician] - 02/16/18 12:00 am ( please call office for exact appointment time if not already done) Provider Discharge Instructions Diet: Diet as Tolerated Activity: no lifting more than 20 lb for 4 weeks may ride in vehicle no driving while taking opioid pain medication may walk as much as desired may climb stairs Cold/Heat Therapy: may apply ice pack to incision as needed for comfort Other treatments: may shower do not soak incision in bathtub or pool for 2 weeks Skin/Wound/Dressing Care Report to your healthcare provider any signs of infection, such as:: chills, fever, increased pain, unusual drainage and unusual redness Dressing: replace gauze dressing at least once daily and as needed Discharge Data Primary Care Provider: Martha Alvarez Attending Provider: Fredo Mckinney Admit Date/Time: 02/07/18 08:23 Quality VTE Deep Vein Thrombosis/Pulmonary Embolism Present on Admission: No
== END 2018-02-09 12:27 | disposition home or self-care (01) ==
LOC: ED 08:13 → AC 08:24
PROVIDERS: Admitting Provider Surgery; Emergency Provider Emergency Medicine; Family Provider Internal Medicine; PCP Internal Medicine; Visit Provider Surgery
PROC: (CPT 44950; principal; 2018-02-07 12:30)
DX: R10.9 Unspecified abdominal pain (principal); K35.80 Unspecified acute appendicitis; F41.9 Anxiety disorder, unspecified
CPT/HCPCS: 44970; 36591; 44950; 74177; 80053; 81003; 81025; 83690; 85025; 85610; 85730; 87070; 87075; 87205; 88304; 96361; 96365; 96375; 99219; 99284; G0378; C9113; J0330; J1100; J1170; J1885; J2250; J2405; J2543; J2704; J3010; Q9967

== ENCOUNTER → 2018-04-28 10:08 | Outpatient (CLI) | payer OTHER, SELFPAY ==
[2018-02-16 11:52] VITALS: BMI 22.4
[2018-04-28 11:08] LABS: Add Manual Diff / Slide Review NO; Basophils Absolute Auto 0 /uL (0-100); Basophils Percent Auto 0.3 % (0-2); Eosinophils Absolute Auto 200 /uL (0-450); Eosinophils Percent Auto 2.1 % (2-4); Hematocrit 42.3 % (36-46); Hemoglobin 14.5 g/dL (12.0-16.0); Lymphocytes Absolute Auto 1800 /uL (1100-4500); Lymphocytes Percent Auto 23.8 % (25-40); Mean Corpuscular HGB Conc 34.3 % (30-36); Mean Corpuscular Hemoglobin 31.3 PG (26-34); Mean Corpuscular Volume 91.3 fL (80-100); Monocytes Absolute Auto 400 /uL (0-900); Monocytes Percent Auto 5.8 % (3-14); Neutrophils Absolute Auto 5100 /uL (1500-7000); Platelet Count 172 X10^3/uL (150-400); Red Blood Cell Count 4.63 X10^6/uL (4.0-5.2); Red Cell Distribution Width 13.3 % (11.6-14.8); White Blood Cell Count 7.5 X10^3/uL (4.5-11.0)
[2018-04-28 11:58] LABS: Alanine Aminotransferase 31 IU/L (9-52); Albumin 4.6 g/dL (3.5-5.0); Albumin Globulin Ratio 1.6 (1.0-2.8); Alkaline Phosphatase 53 U/L (38-126); Aspartate Aminotransferase 21 IU/L (14-36); BUN Creatinine Ratio 18.8 (6-22); Bilirubin Total 0.4 mg/dL (0.2-1.3); Blood Urea Nitrogen 15 mg/dL (7-17); Calcium 9.7 mg/dL (8.4-10.2); Carbon Dioxide 30 mmol/L (22-32); Chloride 100 mmol/L (98-107); Estimated Glomerular Filt Rate > 60.0 mL/min (>60); Globulin 2.8 g/dL (1.7-4.1); Glucose 89 mg/dL (70-100); HEMOLYSIS < 15 (0-50); Potassium 4.7 mmol/L (3.4-5.1); Sodium 139 mmol/L (137-145); Total Protein 7.4 g/dL (6.3-8.2)
== END ==
PROVIDERS: Family Provider Internal Medicine; PCP Family Medicine; Visit Provider Registered Nurse
DX: R19.7 Diarrhea, unspecified (principal)
CPT/HCPCS: 36415; 80053; 85025

== ENCOUNTER → 2018-04-29 17:44 | Outpatient (CLI) | payer OTHER, SELFPAY ==
[2018-02-16 11:52] VITALS: BMI 22.4
== END ==
PROVIDERS: PCP Family Medicine; Visit Provider Registered Nurse
DX: R19.7 Diarrhea, unspecified (principal)
CPT/HCPCS: 87045; 87177; 87899

== ENCOUNTER → 2018-06-13 12:48 | Outpatient (CLI) | payer OTHER, SELFPAY ==
[2018-02-16 11:52] VITALS: BMI 22.4
--- NOTE | 2018-06-13 12:49 | DI.MG.S_ITS ---
BILATERAL DIGITAL SCREENING MAMMOGRAM 3D/2D WITH CAD: 06/13/2018 CLINICAL: Routine screening. Baseline exam. No prior exams were available for comparison. The tissue of both breasts is heterogeneously dense. This may lower the sensitivity of mammography. Current study was also evaluated with a Computer Aided Detection (CAD) system. No significant masses, calcifications, or other findings are seen in either breast. IMPRESSION: NEGATIVE There is no mammographic evidence of malignancy. A 1 year screening mammogram is recommended. This exam was interpreted at Station ID: [id number]. NOTE: For mammograms, a report in lay terms will be sent to the patient. Approximately 15% of breast malignancies will not be visualized mammographically. In the management of a palpable breast mass, a negative mammogram must not discourage biopsy of a clinically suspicious lesion. Electronically Signed By: Dante waggoner/keith:06/13/2018 13:17:16 letter sent: Normal Exam ACR BI-RADS Category 1: Negative [id number]
== END ==
PROVIDERS: PCP Family Medicine; Visit Provider Family Medicine
DX: Z12.31 Encounter for screening mammogram for malignant neoplasm of breast (principal); M85.851 Other specified disorders of bone density and structure, right thigh; Z82.62 Family history of osteoporosis
CPT/HCPCS: 77063; 77067; 77080